=== PATIENT | male | born 1985 | race Caucasian/White ===

== ENCOUNTER 2020-10-28 15:29 | Emergency (ER) | payer SELFPAY ==
[~2020-10-28] VITALS: Ht 180.3 cm; Wt 65.9 kg
[2020-10-28 16:09] VITALS: BP 132/109
--- NOTE | 2020-10-28 16:54 | RAD ---
Left Lower Extremity Venous Doppler Ultrasound History: Reason: pain / Spl. Instructions: / History: Comparison: None Procedure: Color flow, duplex, spectral analysis and 2D images are obtained with and without compress ion in the area of the common femoral vein, superficial femoral vein - femoral vein junction, main fe moral vein (superficial femoral vein) and popliteal vein. Veins of the proximal calf are also imaged. Findings: There is normal duplex flow, color flow and compressibility of all visualized vein segments. No evide nce of deep venous thrombus is present. Impression: No evidence of DVT. Electronically signed by: Albert Chun III, MD (10/28/2020 4:52 PM) KIERAN
--- NOTE | 2020-10-28 17:07 | EKG ---
[address] [address] Test Date: 2020-10-28 Test Time: 16:53:54 Pat Name: ARELIS COOMBS Department: Room: Gender: M Instructional Specialist: ALICIA : 1985 Requested By: RAYMOND ABDULLAHI Order Number: [id number] Reading MD: Measurements Intervals [place] Rate: 95 P: 22 NE: 146 QRS: 47 QRSD: 76 T: 17 QT: 326 QTc: 413 Interpretive Statements SINUS RHYTHM NORMAL ECG RI6.02 No previous ECG available for comparison
--- NOTE | 2020-10-28 17:11 | PHYS DOC ---
Past History Past Surgical History: No Surgical History Alcohol Use: Occasionally Adult General Chief Complaint Chief Complaint: DIZZY/LIGHT HEADED HPI HPI Patient is a 35-year-old male presenting for left leg pain. Onset was 3 days ago. Patient reports living in basement of his parents house and has to run up several stairs. Thinks he might of pulled a muscle but also got online and got concerned about a blood clot. After reading this, patient reported also being dizzy and lightheaded at times which concerned him. He reports his mother is in healthcare, when discussing pain behind his left knee she also got concerned of a blood clot prompting him to come in for evaluation. He is otherwise asymptomatic on arrival with no acute complaints Review of Systems Review of Systems Fourteen body systems of review of systems have been reviewed. See HPI for pertinent positives and negative responses, other chen all other systems are negative, non-pertinent or non-contributory Allergies Allergies Allergies Coded Allergies Type Severity Reaction Last Updated Verified No Known Drug Allergies 10/28/20 No Physical Exam Physical Exam Constitutional: Well developed, well nourished, no acute distress, non-toxic appearance. HENT: Normocephalic, atraumatic, bilateral external ears normal, oropharynx moist, no oral exudates, nose normal. Eyes: PERRLA, EOMI, conjunctiva normal, no discharge. Neck: Normal range of motion, no tenderness, supple, no stridor. Cardiovascular: Heart rate regular, sinus rhythm, no murmurs rubs or gallops Lungs & Thorax: Bilateral breath sounds clear to auscultation Abdomen: Bowel sounds normal, soft, no tenderness, no masses, no pulsatile masses. Nonsurgical abdomen, no peritoneal signs Skin: Warm, dry, no erythema, no rash. Back: No tenderness, no CVA tenderness. Extremities: No tenderness, no cyanosis, no clubbing, ROM intact, no edema. Neurologic: Alert and oriented X 3, grossly normal motor & sensory function, no focal deficits noted. Psychologic: Affect normal, judgement normal, mood normal. Current Patient Data Vital Signs Vital Signs Date Time Temp Pulse Resp B/P (MAP) Pulse Ox O2 Delivery O2 Flow Rate FiO2 10/28/20 16:09 98.3 107 16 132/109 97 Room Air EKG EKG EKG ordered and interpreted by myself 1705 hrs. as sinus rhythm at 95 bpm, unremarkable intervals, no axis deviation, suspect T wave inversion in lead III otherwise no acute or obvious ischemic findings, no STEMI Radiology/Procedures Radiology/Procedures Left Lower Extremity Venous Doppler Ultrasound History: Reason: pain / Spl. Instructions: / History: Comparison: None Procedure: Color flow, duplex, spectral analysis and 2D images are obtained with and without compression in the area of the common femoral vein, superficial femoral vein - femoral vein junction, main femoral vein (superficial femoral vein) and popliteal vein. Veins of the proximal calf are also imaged. Findings: There is normal duplex flow, color flow and compressibility of all visualized vein segments. No evidence of deep venous thrombus is present. Impression: No evidence of DVT. Electronically signed by: Albert Chun III, MD (10/28/2020 4:52 PM) [facility] Heart Score C/O Chest Pain: No Risk Factors: Risk Factors: DM, Current or recent (<one month) smoker, HTN, HLP, family history of CAD, obesity. Risk Scores: Risk Factors: DM, Current or recent (<one month) smoker, HTN, HLP, family history of CAD, obesity. Course & Med Decision Making Course & Med Decision Making ABCs unremarkable. I disclosed entirety of ER findings and discussed most likely diagnosis of left leg strain. Other diagnoses were discussed with patient such as DVT, pulmonary embolism etc. but all deemed less likely causes of patient's presentation. Plan of care discussed at length with need for close outpatient follow-up to review today's ER visit stressed. Strict return precautions were also discussed at length with good understanding by patient. Patient voiced understanding and agreement with the plan. Patient knows to come back for repeat evaluation if concerning signs or symptoms present prior to outpatient follow- up. Hemodynamically stable, ambulatory and well-appearing at time of disposition. Dragon Disclaimer Dragon Disclaimer This electronic medical record was generated, in whole or in part, using a voice recognition dictation system. Departure Departure: Impression: Primary Impression: Left leg pain Disposition: HOME / SELF CARE / HOMELESS Condition: STABLE Referrals: PCP,NO (PCP) Additional Instructions: As discussed prior to ER departure, your history, physical examination and ultrasound of your left leg was nonconcerning for any emergent or surgical issue s. There is appropriate anxiety and fear about your health with potential cause being a blood clot but after evaluation today, there is low risk for this being the source of your pain. As disclosed, your presentation is more consistent with a musculoskeletal cause of pain that is likely self-limiting in nature. As discussed, please continue supportive care practices at home that includes heat application, stretching, and NSAID use as needed for pain. I recommend you use attached resource list and contact a local primary care provider of your liking to set up care and follow-up in outpatient setting. If any concerning signs or symptoms present prior to outpatient follow-up please do not hesitate to come back for repeat evaluation. It is a pleasure to take care of you and I wish you the best going forward RAYMOND ABDULLAHI DO Oct 28, 2020 17:11
== END 2020-10-28 17:30 | disposition home or self-care (01) ==
LOC: ER 15:29
DX: M79.605 Pain in left leg (principal); R42 Dizziness and giddiness
CPT/HCPCS: 93005; 93971; 99284-25